=== PATIENT | female | born 1935 | race Hispanic/Latino ===

== ENCOUNTER 2019-11-10 06:03 | Day surgery (SDC) | payer MEDICARE ==
[~2019-11-10 06:03] MED LIST: ALEN70TA10 PO; ASPI-555 PO; CA C1TAB95 PO; ESOM40CA54 PO; GABA-529 PO; LEVO75TA10 PO; METO5TAB2 PO; METOTREXATE PO; ONDA4TAB10 PO; POTA-9 PO; PRED2.5T PO; SODIUM CHLORIDE 0.9% 1000ML 1,000 ML IV ONE; SUCR1TAB2 PO; UPAD15TA PO; [UNRECOGNIZED DRUG - OTHER]; [UNRECOGNIZED DRUG - OTHER]
[2019-11-10 07:37] VITALS: BP 116/60
[2019-11-10] MEDS ORDERED: PROPOFOL 10 MG/ML 20ML VIAL IV ONE ×2 (08:06→08:25)
[2019-11-10] MEDS ORDERED: EPHEDRINE SULFATE 50 MG/ML AMPULE ONE (08:26)
[2019-11-10 08:36] VITALS: BP 91/39
[2019-11-10 08:40] VITALS: BP 102/44
[2019-11-10 08:45] VITALS: BP 115/50
== END 2019-11-10 09:15 | disposition home or self-care (01) ==
LOC: DAH 06:03 → ENDO 06:03 → EDSEX 07:15 → ENDO 09:15
PROVIDERS: ATTEND Internal Medicine Gastroenterology
DX: R13.10 Dysphagia, unspecified (principal); K29.80 Duodenitis without bleeding; K29.50 Unspecified chronic gastritis without bleeding; K22.2 Esophageal obstruction; K44.9 Diaphragmatic hernia without obstruction or gangrene; K31.89 Other diseases of stomach and duodenum; K21.9 Gastro-esophageal reflux disease without esophagitis; I10 Essential (primary) hypertension; E78.00 Pure hypercholesterolemia, unspecified; E03.9 Hypothyroidism, unspecified; M81.0 Age-related osteoporosis without current pathological fracture; Z90.49 Acquired absence of other specified parts of digestive tract; Z98.890 Other specified postprocedural states
CPT/HCPCS: 43239; 43248; 88305; A4215 ×2; A4221 ×2; A4222 ×2; A4223; A4606 ×2; A4615; A4620; A4663 ×2; J2704 ×2; J3490; J7030